=== PATIENT | male | born 1970 | race Caucasian/White ===

== ENCOUNTER 2017-04-30 14:57 | Emergency (ER) | payer SELFPAY ==
[~2017-04-30] VITALS: Ht 185.4 cm; Wt 108.9 kg
[~2017-04-30 14:57] MED LIST: ALBUTEROL SULF8.5 GM INH; AZITHROMYCIN250 MG ORAL; BACTRIM DS TAB1 EAC1 ORAL; COLACE100 MG ORAL; NKM; NORCO 5-325 TA1 EACH ORAL; NORCO 5/3251 TAB ORAL; NORCO1 E1 ORAL; ONDANSETRON ODT4 MG ORAL; PREDNISONE20 MG ORAL; ROBAXIN-750750 MG PO; SUBOXONE 8 MG-1 EAC2 SL
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
[2017-04-30 15:00] VITALS: BP 126/84
[2017-04-30 15:52] LABS: BASOPHILS % (AUTO) 0.9 % (0.0-2.0); EOSINOPHILS % (AUTO) 3.7 % (0.0-3.0); LYMPHOCYTES % (AUTO) 38.8 % (20.0-45.0); MEAN CORPUSCULAR HEMOGLOBIN 32.8 PG (27.0-31.0); MEAN CORPUSCULAR HGB CONC 33.2 G/DL (32.0-36.0); MEAN CORPUSCULAR VOLUME 99 FL (80-99); MEAN PLATELET VOLUME 6.2 FL (6.5-10.1); MONOCYTES % (AUTO) 7.1 % (1.0-10.0); NEUTROPHILS % (AUTO) 49.5 % (45.0-75.0); PLATELET COUNT 256 K/UL (150-450); RED BLOOD COUNT 4.41 M/UL (4.70-6.10); RED CELL DISTRIBUTION WIDTH 11.5 % (11.6-14.8); WHITE BLOOD COUNT 6.4 K/UL (4.8-10.8)
[2017-04-30 16:00] VITALS: BP 122/84
[2017-04-30 16:21] LABS: ALANINE AMINOTRANSFERASE 25 U/L (12-78); ALBUMIN/GLOBULIN RATIO 1.1 (1.0-2.7); ANION GAP 8 (5-15); ASPARTATE AMINO TRANSFERASE 13 U/L (15-37); CALCIUM 8.6 MG/DL (8.5-10.1); CARBON DIOXIDE 28 MMOL/L (21-32); CHLORIDE 101 MMOL/L (98-107); CREATININE 0.9 MG/DL (0.55-1.30); GLOMERULAR FILTRATION RATE > 60 mL/min (>60); POTASSIUM 2.8 MMOL/L (3.5-5.1); SODIUM 137 MMOL/L (136-145); THYROID STIMULATING HORMONE 0.488 uiU/mL (0.360-3.740); TOTAL PROTEIN 7.3 G/DL (6.4-8.2)
--- NOTE | 2017-04-30 16:24 | Diagnostic Imaging Report ---
Indication: Altered mental status Technique: Continuous helical CT scanning of the head was performed without intravenous contrast material. Axial and coronal 5 mm sections were generated. Radiation dose was minimized using automated exposure control Dose: Total Dose Length Product - DLP [address] Dose Index - CTDIvol(s) 70.38 mGy. Comparison: None Findings: Questionable small focus of low attenuation is seen in the genu of the right internal capsule. No acute edema otherwise. No acute hemorrhage. No mass effect or midline shift. Normal fields-white differentiation. There is minimal ethmoid and right maxillary sinus disease. The orbits are unremarkable. The mastoids are clear. Impression: Equivocal small lacunar infarct in the genu of the right internal capsule, age indeterminate if real. Consider MRI for better characterization if clinically indicated No evidence of acute intracranial bleed or mass effect otherwise Sinus disease The CT scanner at [facility] is accredited by the [employer] and the scans are performed using protocols designed to limit radiation exposure to as low as reasonably achievable to attain images of sufficient resolution adequate for diagnostic evaluation.
[2017-04-30 16:25] VITALS: BP 122/84
[2017-04-30] MEDS ORDERED: SUBOXONE 8 MG-1 EAC2 SL (21:08)
[2017-04-30] MEDS ORDERED: Aspirin Baby 81mg ONE (21:13)
--- NOTE | 2017-05-01 23:03 | Cardiology Report ---
APPROVED REPORT EKG Measurement Heart [id number] [place] 120P52 [id number] Sinus tachycardia Nonspecific T wave abnormality Prolonged QT Abnormal ECG
== END 2017-04-30 16:25 | disposition left against medical advice (07) ==
LOC: EDBD 14:57 → EMR 15:12 → MERGE 15:12 → EMR 16:25
DX: R40.4 Transient alteration of awareness (principal); E16.2 Hypoglycemia, unspecified; Z53.21 Procedure and treatment not carried out due to patient leaving prior to being seen by health care provider
CPT/HCPCS: 36415; 70450; 80053; 82962; 84443; 84484; 85025; 93005; 99284; G0480; 80329; J8499

== ENCOUNTER 2017-04-30 20:49 | Emergency (ER) | payer SELFPAY ==
[~2017-04-30] VITALS: Ht 180.3 cm; Wt 97.5 kg
[2017-04-30] MEDS ORDERED: SUBOXONE 8 MG-1 EAC2 SL (21:08)
[2017-04-30] MEDS ORDERED: Aspirin Baby 81mg ORAL ONE (21:15)
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
[2017-04-30 22:20] VITALS: BP 123/97
--- NOTE | 2017-05-01 12:24 | Diagnostic Imaging Report ---
Indication: Chest pain Technique: One view of the chest Comparison: none Findings: Lungs and pleural spaces are clear. Heart size is normal. Impression: No acute process
--- NOTE | 2017-05-01 22:58 | Cardiology Report ---
APPROVED REPORT EKG Measurement Heart [id number] [place] 140P64 [id number] Normal sinus rhythm Normal ECG
== END 2017-04-30 22:20 | disposition left against medical advice (07) ==
LOC: EMR 21:30 → MERGE 21:30 → EMR 22:20
DX: R07.9 Chest pain, unspecified (principal); E11.9 Type 2 diabetes mellitus without complications; R55 Syncope and collapse; I10 Essential (primary) hypertension
CPT/HCPCS: 36415; 71010; 80300; 84132; 84484; 93005; 99283

== ENCOUNTER 2017-09-25 17:19 | Emergency (ER) | payer MEDICAID ==
[~2017-09-25] VITALS: Ht 177.8 cm; Wt 81.6 kg
[2017-09-25 17:40] VITALS: BP 149/92
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
[2017-09-25 17:50] VITALS: BP 149/92
== END 2017-09-25 17:50 | disposition left against medical advice (07) ==
LOC: EDBD 17:19 → EMR 17:46
DX: T39.1X1A Poisoning by 4-Aminophenol derivatives, accidental (unintentional), initial encounter (principal); Y92.9 Unspecified place or not applicable
CPT/HCPCS: 99283

== ENCOUNTER 2018-11-02 04:02 | Emergency (ER) | payer MEDICAID ==
[~2018-11-02] VITALS: Ht 172.7 cm; Wt 68.0 kg
[2018-11-02] MEDS ORDERED: NKM (04:08)
--- NOTE | 2018-11-02 04:22 | NUR ---
ED Nurse Note: PAtient walked into ED c/o / left sided chest pain that radiates to his left hand, states hes been experiencing this pain for the past couple days. Patient AO4. NAD. Family at bedside.
[2018-11-02 04:23] VITALS: BP 130/91
--- NOTE | 2018-11-02 04:30 | NUR ---
AMA: SEE AMA FORM.
[2018-11-02 04:31] VITALS: BP 130/91
--- NOTE | 2018-11-02 04:35 | Emergency Room Report ---
History of Present Illness General Chief Complaint: Chest Pain Source: Patient, Medical Record Present Illness HPI Is a 48-year-old male history of chronic pain. He also has history of chronic chest pain. Patient presents with chest pain and syncope. He was symptom in the past. He said he was driving home from [employer] and everything went white. He also has been having chest pain/chest pressure for 3 days. Denies any nausea vomiting. Denies any fever or chills. Still able to drive all the way here. Denies any other complaint. Similar symptom in the past. Allergies: Coded Allergies: No Known Allergies (Unverified , 03/05/13) Patient History Past Medical History: see triage record, old chart reviewed Past Surgical History: other Pertinent Family History: none Social History: Reports: smoking Immunizations: other Reviewed Nursing Documentation: PMH: Agreed; PSxH: Agreed Nursing Documentation-PMH Past Medical History: No History, Except For Hx Hypertension: Yes Hx Pacemaker: No Hx Asthma: No Hx COPD: No Hx Diabetes: No Hx Cancer: No Hx Gastrointestinal Problems: No Hx Dialysis: No Hx Neurological Problems: No Hx Cerebrovascular Accident: No Hx Seizures: Yes Review of Systems Eye: Denies: eye pain, blurred vision ENT: Denies: ear pain, nose congestion, throat swelling Respiratory: Denies: cough, shortness of breath Cardiovascular: Reports: chest pain; Denies: palpitations Gastrointestinal: Denies: abdominal pain, diarrhea, nausea, vomiting Musculoskeletal: Denies: back pain, joint pain Skin: Denies: rash Neurological: Denies: headache, numbness Endocrine: Denies: increased thirst, increased urine Hematologic/Lymphatic: Denies: easy bruising All Other Systems: negative except mentioned in HPI Physical Exam Vital Signs Date Time Temp Pulse Resp B/P (MAP) Pulse Ox O2 Delivery O2 Flow Rate FiO2 11/02/18 04:05 98.4 67 18 148/82 98 Room Air vitals unremarkable Sp02 EP Interpretation: reviewed, normal General Appearance: well appearing, no apparent distress, alert Head: normocephalic, atraumatic Eyes: bilateral eye PERRL, bilateral eye EOMI ENT: hearing grossly normal, normal pharynx Neck: full range of motion, supple, no meningismus Respiratory: chest non-tender, lungs clear, normal breath sounds Cardiovascular #1: regular rate, rhythm, no murmur Gastrointestinal: normal bowel sounds, non tender, no mass, no organomegaly, no bruit, non-distended Musculoskeletal: back normal, gait/station normal, normal range of motion Psychiatric: mood/affect normal Skin: warm/dry Medical Decision Making Diagnostic Impression: Primary Impression: Chest pain Qualified Codes: R07.9 - Chest pain, unspecified Additional Impressions: Chronic pain Qualified Codes: G89.4 - Chronic pain syndrome Syncope Qualified Codes: R55 - Syncope and collapse ER Course She presents with chronic pain with chest pain and questionable syncope. Patient was sleeping comfortably and I had to wake him up. 50 was unremarkable. Patient said he is taking [place]. No longer taking Suboxone. Said is out of his pain medication. I told patient that I will check blood work to make sure troponin is negative. Told patient that I will hold off on any narcotics. Patient was not happy with this. He said he wanted to go somewhere else. Patient is competent to sign out AGAINST MEDICAL ADVICE. EKG Diagnostic Results Rate: normal Rhythm: NSR ST Segments: no acute changes Rhythm Strip Diag. Results EP Interpretation: yes Rate: 70 Rhythm: NSR, no PVC's, no ectopy Last Vital Signs Date Time Temp Pulse Resp B/P (MAP) Pulse Ox O2 Delivery O2 Flow Rate FiO2 11/02/18 04:23 67 18 Room Air 11/02/18 04:23 98.4 130/91 99 Status: unchanged Disposition: AGAINST MEDICAL ADVICE Condition: Stable Patient Instructions: Nonspecific Chest Pain David Mckee MD Nov 02, 2018 04:35
--- NOTE | 2018-11-02 19:55 | Cardiology Report ---
APPROVED REPORT EKG Measurement Heart [id number] 130P71 [id number] Normal sinus rhythm Normal ECG
== END 2018-11-02 04:30 | disposition left against medical advice (07) ==
LOC: EMR 04:25
DX: R07.9 Chest pain, unspecified (principal); G89.4 Chronic pain syndrome; R55 Syncope and collapse; I10 Essential (primary) hypertension; F17.200 Nicotine dependence, unspecified, uncomplicated; G40.909 Epilepsy, unspecified, not intractable, without status epilepticus
CPT/HCPCS: 93005; 99282